=== PATIENT | female | born 1965 | race Caucasian/White ===

== ENCOUNTER 2016-08-22 14:52 | Outpatient (CLI) | payer BC ==
--- NOTE | 2016-08-24 13:46 | Mammography Report ---
DIGITAL SCREENING MAMMOGRAM: 08/22/2016 CLINICAL INDICATION: A 50-year-old with history of late childbearing for screening. COMPARISON: 07/2011, 09/2007. TECHNIQUE: Routine CC and MLO projections were obtained of the breasts. FINDINGS: The breasts again demonstrate heterogeneously dense fibroglandular parenchyma bilaterally. Coarse and punctate, typically benign calcifications are present. No suspicious masses, clustered microcalcifications, or regions of architectural distortion are identified. IMPRESSION: BENIGN FINDINGS. RECOMMENDATION: Routine annual screening unless otherwise clinically indicated. BI-RADS category 2, benign findings. STANDARD QUALIFYING STATEMENTS 1. This examination was reviewed with the aid of Computer-Aided Detection (CAD). 2. A negative or benign imaging report should not delay biopsy if clinically suspicious findings are present. Consider surgical consultation if warranted. More than 5% of cancers are not identified by i maging. 3. Dense breasts may obscure an underlying neoplasm. JOB #: [id number] EXT JOB #:[id number]
== END 2016-08-22 14:53 | disposition home or self-care (01) ==
LOC: DI.S 14:52
PROVIDERS: ATTEND Obstetrics & Gynecology
DX: Z12.39 Encounter for other screening for malignant neoplasm of breast (principal)
CPT/HCPCS: 77067

== ENCOUNTER 2016-09-11 11:13 | Outpatient (CLI) | payer BC ==
[2016-09-11 17:47] LABS: BILIRUBIN,URINE NEGATIVE (NEGATIVE); PH,URINE 6.5 PH (5.0-7.5)
[2016-09-11 17:50] LABS: UA CHARGE (STRIP ONLY) YES; UR CULTURE IF IND NOT INDICATED
== END 2016-09-11 11:14 | disposition home or self-care (01) ==
LOC: LAB.F 11:13
PROVIDERS: ATTEND Internal Medicine
DX: N39.3 Stress incontinence (female) (male) (principal)
CPT/HCPCS: 81001; 81003; 87086

== ENCOUNTER 2016-10-03 07:34 | Outpatient (CLI) | payer BC ==
[2016-10-03 12:13] LABS: CHOL/HDL RATIO 2.9 (<4.4); CHOLESTEROL 191 mg/dL; HDL CHOLESTEROL 66 mg/dL; LDL/HDL RATIO 1.6 (<4.4); TRIGLYCERIDES 88 mg/dL; VLDL CHOLESTEROL 18 mg/dL
== END 2016-10-03 07:35 | disposition home or self-care (01) ==
LOC: LAB.F 07:34
PROVIDERS: ATTEND Internal Medicine
DX: Z13.6 Encounter for screening for cardiovascular disorders (principal)
CPT/HCPCS: 36415; 80061

== ENCOUNTER 2021-08-03 08:00 | Outpatient (CLI) | payer BC ==
[2021-08-03 19:58] LABS: BILIRUBIN,URINE NEGATIVE (NEGATIVE); GLUCOSE, URINE (UA) NEGATIVE (NEGATIVE); KETONES,URINE (UA) NEGATIVE (NEGATIVE); LEUKOCYTE ESTERASE, URINE NEGATIVE (NEGATIVE); NITRITE,URINE NEGATIVE (NEGATIVE); OCCULT BLOOD,URINE NEGATIVE (NEGATIVE); PH,URINE 6.5 PH (5.0-7.5); PROTEIN,URINE NEGATIVE (NEGATIVE); UROBILINOGEN,URINE 0.2 (NORMAL) E.U./dL (NORMAL)
[2021-08-03 20:16] LABS: BACTERIA,URINE None Seen /HPF (None Seen); CLARITY,URINE CLEAR (CLEAR); RBC,URINE None Seen /HPF (0-5); SQUAMOUS EPITHELIAL CELL,UR RARE Squamous (<= Few); WBC,URINE 0-3 /HPF (0-5)
== END 2021-08-04 22:55 | disposition home or self-care (01) ==
LOC: LAB 08:00
PROVIDERS: ATTEND Physician Assistant Medical
DX: R35.0 Frequency of micturition (principal)
CPT/HCPCS: 81001; 87086

== ENCOUNTER 2021-08-09 09:45 | Outpatient (CLI) | payer BC, OTHER | END 2021-08-09 23:59 | disposition home or self-care (01) | LOC: LAB.S 09:45 | PROVIDERS: ATTEND Physician Assistant Medical | DX: U07.1 COVID-19 (principal) | CPT/HCPCS: 87070 ==